=== PATIENT | female | born 1990 | race African-American/Black ===

== ENCOUNTER 2016-12-26 12:45 | Emergency (ER) | payer SELFPAY ==
[~2016-12-26] VITALS: Ht 180.3 cm; Wt 73.6 kg
[2016-12-26] MEDS ORDERED: KETOROLAC TROMETHAMINE 60 MG/2 ML VIAL IM ONE (13:45)
[2016-12-26] MEDS ORDERED: METHOCARBAMOL 500 MG TABLET PO ONE (13:45)
[2016-12-26 14:33] VITALS: BP 127/84
== END 2016-12-26 14:41 | disposition home or self-care (01) ==
LOC: EMS 12:47
DX: M54.5 Low back pain (principal)
CPT/HCPCS: 96372; 99283; J1885